=== PATIENT | female | born 1995 | race Caucasian/White ===

== ENCOUNTER 2021-08-08 18:21 | Outpatient (CLI) | payer OTHER, SELFPAY | END 2021-08-08 18:22 | disposition home or self-care (01) | LOC: LKVREF 18:27 | PROVIDERS: PCP Family Medicine; Visit Provider Nurse Practitioner Family | DX: R19.7 Diarrhea, unspecified (principal); R50.9 Fever, unspecified; J02.9 Acute pharyngitis, unspecified | CPT/HCPCS: 87045; 87046; 87086; 87186; 87427 ==

== ENCOUNTER 2022-02-28 08:06 | Outpatient (CLI) | payer BC, SELFPAY ==
[2022-02-28 12:18] LABS: Albumin* 3.7 g/dL (3.3-5.0); Chloride* 108 mmol/L (96-114)
[2022-02-28 12:19] LABS: Potassium* 4.1 mmol/L (3.6-5.1); Sodium* 139 mmol/L (135-149)
[2022-02-28 12:21] LABS: Carbon Dioxide* 25 mmol/L (20-32); Cholesterol* 186 mg/dL (90-199); Creatinine* 0.7 mg/dL (0.5-1.5); Estimated Glomerular Filt Rate 122 ml/min
[2022-02-28 12:22] LABS: Alanine Aminotransferase* 22 U/L (4-35); Alkaline Phosphatase* 51 U/L (40-150); Aspartate Amino Transferase* 23 U/L (12-35); Bilirubin Total* 0.4 mg/dL (0.1-1.5); Blood Urea Nitrogen* 13 mg/dL (5-24); Calcium* 8.9 mg/dL (8.4-10.6); Glucose* 118 mg/dL (60-115); HDL Cholesterol* 45 mg/dL (>=50); LDL Cholesterol Calculated 105 mg/dL (<100); Total Protein* 6.4 g/dL (6.0-8.3); Triglycerides* 179 mg/dL (40-149)
== END 2022-02-28 08:07 | disposition home or self-care (01) ==
PROVIDERS: PCP Family Medicine; Visit Provider Family Medicine
DX: Z01.419 Encounter for gynecological examination (general) (routine) without abnormal findings (principal); R73.01 Impaired fasting glucose; E78.5 Hyperlipidemia, unspecified; F41.9 Anxiety disorder, unspecified
CPT/HCPCS: 80053; 80061